=== PATIENT | female | born 1975 | race Caucasian/White ===

== ENCOUNTER 2020-06-06 11:48 | Emergency (ER) | payer OTHER ==
[~2020-06-06] VITALS: Ht 172.7 cm; Wt 90.7 kg
[~2020-06-06 11:48] MED LIST: CILOXAN5 ML OD; CLONAZEPAM2 MG GT
--- OUTSIDE RECORDS SUMMARY | 2020-06-06 11:52 | XMS ---
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 Bert has no Care Guidelines for this patient. Nasrin VISIT COUNT (12 MO.) 1 [facility] TOTAL 1 NOTE: Visits indicate total known visits. ED/C VISIT TRACKING (12 MO.) 06/06/2020 11:49 [facility] [place] TYPE: Emergency COMPLAINT: - CHEST PAIN INPATIENT VISIT TRACKING (12 MO.) No inpatient visits to display in this time frame [id number]
--- NOTE | 2020-06-06 12:08 | EKG ---
[facility] [address] [place], [place] [address] Signed Normal sinus rhythm Septal infarct , age undetermined Abnormal ECG Confirmed by RUBEN VARMA DO ([id number]) on 06/06/2020 12:08:09 PM Electronically Signed By: RUBEN VARMA DO 06/06/20 1208 PATIENT NAME: JARED CHAMBERLAIN Electrocardiogram DATE OF : 73 PHYSICIAN: RUBEN VARMA DO REPORT #: [id number] REPORT IS CONFIDENTIAL AND NOT TO BE RELEASED WITHOUT AUTHORIZATION
== END 2020-06-06 17:11 | disposition home or self-care (01) ==
LOC: ED 11:48
DX: U07.1 COVID-19 (principal); Z88.0 Allergy status to penicillin; Z88.5 Allergy status to narcotic agent
CPT/HCPCS: 71045; 80053; 83735; 84484; 85025; 93005; 93010; 96374; 99285-25; A9270; C9803; J2060; U0003

== ENCOUNTER 2020-11-02 19:34 | Emergency (ER) | payer OTHER ==
[~2020-11-02] VITALS: Ht 172.7 cm; Wt 90.7 kg
--- OUTSIDE RECORDS SUMMARY | 2020-11-02 19:38 | XMS ---
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 EChandni VISIT COUNT (12 MO.) 2 E[facility] Richards TOTAL 2 NOTE: Visits indicate total known visits. ED/UCC VISIT TRACKING (12 MO.) 11/02/2020 19:35 [facility] [place] TYPE: Emergency COMPLAINT: - L HAND FINGER LACERATION 06/06/2020 11:49 [facility] [place] TYPE: Emergency COMPLAINT: - CHEST PAIN DIAGNOSES: - COVID-19 - Other chest pain - COVID-19 - Allergy status to narcotic agent - Other chest pain - Allergy status to penicillin INPATIENT VISIT TRACKING (12 MO.) No inpatient visits to display in this time frame [email or web address]
== END 2020-11-02 21:32 | disposition home or self-care (01) ==
LOC: ED 19:34
DX: S61.213A Laceration without foreign body of left middle finger without damage to nail, initial encounter (principal); Z23 Encounter for immunization; W26.0XXA Contact with knife, initial encounter; Z88.0 Allergy status to penicillin; Z88.5 Allergy status to narcotic agent
CPT/HCPCS: 12001; 90471; 90714; 99282-25

== ENCOUNTER 2020-11-19 16:09 | Emergency (ER) | payer OTHER ==
[~2020-11-19] VITALS: Ht 172.7 cm; Wt 85.3 kg
--- OUTSIDE RECORDS SUMMARY | 2020-11-19 16:12 | XMS ---
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 EChandni VISIT COUNT (12 MO.) [address] [place] [address] TOTAL 3 NOTE: Visits indicate total known visits. ED/UCC VISIT TRACKING (12 MO.) 11/19/2020 16:10 [facility] [place] TYPE: Emergency COMPLAINT: - R SHOULDER INJURY 11/02/2020 19:35 [facility] [place] TYPE: Emergency COMPLAINT: - L HAND FINGER LACERATION DIAGNOSES: - Laceration without foreign body of left middle finger without damage to nail, initial encounter - Contact with knife, initial encounter - Allergy status to penicillin - Allergy status to narcotic agent - Encounter for immunization 06/06/2020 11:[address] [facility] [place] TYPE: Emergency COMPLAINT: - CHEST PAIN DIAGNOSES: - COVID-19 - Other chest pain - COVID-19 - Allergy status to narcotic agent - Other chest pain - Allergy status to penicillin INPATIENT VISIT TRACKING (12 MO.) No inpatient visits to display in this time frame [email or web address]
[2020-11-19] MEDS ORDERED: OMEPRAZOLE20 MG PO (16:23)
[2020-11-19] MEDS ORDERED: HYDROCODON-ACE1 EA10 PO (18:08)
== END 2020-11-19 18:25 | disposition home or self-care (01) ==
LOC: ED 16:09
DX: S43.51XA Sprain of right acromioclavicular joint, initial encounter (principal); W01.198A Fall on same level from slipping, tripping and stumbling with subsequent striking against other object, initial encounter; Z88.0 Allergy status to penicillin; Z88.5 Allergy status to narcotic agent; Z79.899 Other long term (current) drug therapy
CPT/HCPCS: 73030; 96372; 99283-25; J1170